=== PATIENT | male | born 2000 | race Caucasian/White ===

== ENCOUNTER 2021-06-17 14:30 | Emergency (ER) | payer OTHER ==
[~2021-06-17] VITALS: Ht 170.2 cm; Wt 91.0 kg
[2021-06-17] MEDS ORDERED: TRAMADOL 50MG TABLET PO ONE (15:15)
[2021-06-17 15:28] VITALS: BP 166/109
[2021-06-17] MEDS ORDERED: BACITRACIN ZINC OINT UDPKT TOP ONE (16:00)
[2021-06-17] MEDS ORDERED: LIDOCAINE HCL/PF 1% 10 MG/ML 5ML VIAL INFIL ONE (16:00)
[2021-06-17] MEDS ORDERED: AMOX-424 MT (16:46)
[2021-06-17] MEDS ORDERED: METR500T MT (16:46)
== END 2021-06-17 17:41 | disposition home or self-care (01) ==
LOC: ER 14:30
DX: K61.0 Anal abscess (principal)
CPT/HCPCS: 10060; 99283; J3490; Z7610

== ENCOUNTER 2024-02-12 06:54 | Emergency (ER) | payer OTHER ==
[~2024-02-12] VITALS: Ht 170.2 cm; Wt 96.5 kg
[~2024-02-12 06:54] MED LIST: AMOX-424 MT; METR500T MT
[2024-02-12 07:03] VITALS: O2SAT 97
[2024-02-12] MEDS ORDERED: PHEN51CR24 TP (08:27)
[2024-02-12 09:02] VITALS: BP 116/78; PULSE 78; RESP 16; TEMP 98.3
== END 2024-02-12 09:02 | disposition home or self-care (01) ==
LOC: ER 06:54
DX: K64.9 Unspecified hemorrhoids (principal)
CPT/HCPCS: 99282